=== PATIENT | female | born 1970 | race Caucasian/White ===

== ENCOUNTER 2016-07-14 19:53 | Emergency (ER) | payer MEDICARE, OTHER ==
[~2016-07-14 19:53] MED LIST: ADVAIR115P INH; ADVAIR250 INH; ALLEGRA-D24 HOUR PO; ASAB PO; ATEN25 PO; ATEN50 PO; CELEBREX2 PO; CRESTOR10 PO; ESTRATESHS PO; FLONASE NAS; LAMICTAL150 MG PO; LAMICTAL200 MG PO; LORTAB 5 PO; LORTAB10 PO; MCZ25 PO; MELA3 PO; MELATONIN5 M1 PO; METHOC500B PO; MIRALAXPKT PO; NASONEX NAS; NEUR300 PO; NTG150 SL; PR25 PO; PROTONIX PO; PROVHFA INH; RANITIDINE300 MG PO; SOMATAB PO; SUCR PO; SYN.05 PO; TOPAMAX200 MG PO; TRAZ100 PO; VIST25 PO
[2016-07-14 20:27] LABS: ASCORBIC ACID (UR NOT ORDER) NEG (NEG); BILIRUBIN, URINE NEGATIVE (NEG); ER URINALYSIS TAT 0 Hrs 00 Mins; KETONE, URINE NEGATIVE (NEG); LEUKOCYTE ESTERASE(NOT OR NEG (NEG); NITRITE (URINE) NEG (NEG); WBC (NOT ORDERED) (RFLEX) < 1 (0-5)
== END 2016-07-14 20:32 | disposition home or self-care (01) ==
LOC: ER 19:53
PROVIDERS: Emergency Medicine
DX: S39.012A Strain of muscle, fascia and tendon of lower back, initial encounter (principal); J45.909 Unspecified asthma, uncomplicated; I10 Essential (primary) hypertension; E11.9 Type 2 diabetes mellitus without complications; F41.9 Anxiety disorder, unspecified; F31.9 Bipolar disorder, unspecified; K21.9 Gastro-esophageal reflux disease without esophagitis; Z88.8 Allergy status to other drugs, medicaments and biological substances; Z88.2 Allergy status to sulfonamides; Z91.040 Latex allergy status; Z79.899 Other long term (current) drug therapy; Z79.82 Long term (current) use of aspirin; X58.XXXA Exposure to other specified factors, initial encounter
CPT/HCPCS: 72131; 81001; 96374; 96375; 99284; J1170; J2405; J2800; J2930